=== PATIENT | male | born 1970 | race Caucasian/White ===

== ENCOUNTER 2017-03-22 11:21 | Emergency (ER) | payer SELFPAY ==
[~2017-03-22] VITALS: Ht 180.3 cm; Wt 79.4 kg
[2017-03-22 11:30] VITALS: BP 118/81
[2017-03-22] MEDS ORDERED: LIDOCAINE 1% / SOD BICARB 8.4% 20 ML VIAL. IJ ONE (12:15)
[2017-03-22] MEDS ORDERED: LIDOCAINE/EPI/TETRACAINE TOPICAL GEL 3 ML. TP ONE (12:15)
[2017-03-22] MEDS ORDERED: DIPHTH,PERTUSS(ACELL),TET TOX 0.5 ML DISP.SYRIN. VAX IM ONE (12:15)
--- NOTE | 2017-03-22 13:00 | PHYS DOC ---
Past Medical History Past Medical History: No Pertinent History Past Surgical History: Other Additional Past Surgical Histo: LEFT ARM SX, RIGHT LEG SX Alcohol Use: Occasionally Drug Use: None Adult General Chief Complaint Chief Complaint: LACERATION/AVULSION HPI HPI Patient is a 46 year old male who presents with right elbow laceration. Patient states he got cut by a piece of metal cleaning gutters. Review of Systems Review of Systems Constitutional: Denies fever or chills [] Musculoskeletal: Denies back pain or joint pain [] Integument: Right elbow laceration Neurologic: Denies headache, focal weakness or sensory changes [] Endocrine: Denies polyuria or polydipsia [] Current Medications Current Medications Current Medications Medications (Trade) Dose Ordered Sig/Carlos Start Time Stop Time Status Last Admin Dose Admin Diphtheria/ Tetanus/Acell Pertussis (Boostrix) 0.5 ml ONCE ONCE 03/22/17 12:15 03/22/17 12:16 DC 03/22/17 12:02 0.5 ML Lidocaine/ Epinephrine (Let Topical) 3 ml 1X ONCE 03/22/17 12:15 03/22/17 12:16 DC 03/22/17 12:01 3 ML Lidocaine/Sodium Bicarbonate (Buffered Lidocaine 1%) 20 ml 1X ONCE 03/22/17 12:15 03/22/17 12:16 DC 03/22/17 12:01 20 ML Allergies Allergies Allergies Coded Allergies Type Severity Reaction Last Updated Verified No Known Drug Allergies 03/22/17 No Physical Exam Physical Exam Constitutional: Well developed, well nourished, no acute distress, non-toxic appearance. [] Skin: Right antecubital elbow with a laceration approximately 4 cm long, this no tendon involvement. Full range of motion to the right elbow including flexion and extension. +2 right radial pulse. Cap refill less than 2 seconds the right upper extremity. Adequate radial medial and ulnar sensation to the right upper extremity. Back: No tenderness, no CVA tenderness. [] Extremities: No tenderness, no cyanosis, no clubbing, ROM intact, no edema. [] Neurologic: Alert and oriented X 3, normal motor function, normal sensory function, no focal deficits noted. [] Psychologic: Affect normal, judgement normal, mood normal. [] Current Patient Data Vital Signs Vital Signs Date Time Temp Pulse Resp B/P (MAP) Pulse Ox O2 Delivery O2 Flow Rate FiO2 03/22/17 11:30 97.7 86 16 96 Room Air 97.7 EKG EKG [] Radiology/Procedures Radiology/Procedures Indication: Right elbow laceration Procedure: The patient was placed in the appropriate position and anesthesia around the laceration was LET then 1% buffered lidocaine. The laceration was explored for foreign objects, none was found. The area was then cleaned with the 100 ML of normal saline and Betadine. The laceration was closed with 7 interrupted sutures using 4. 0 Ethilon. The wound was covered with nonstick dressing. Total repaired wound length: approx. 4 cm Other Items: none The patient tolerated the procedure well Complications: none Course & Med Decision Making Course & Med Decision Making Pertinent Labs and Imaging studies reviewed. (See chart for details) Patient has right elbow laceration that was closed as noted in procedures by me. Tetanus was updated. Wound care instructions and return precautions provided. Dragon Disclaimer Dragon Disclaimer This electronic medical record was generated, in whole or in part, using a voice recognition dictation system. Departure Departure Impression: Primary Impression: Laceration of right elbow Disposition: 01 HOME, SELF-CARE Condition: STABLE Referrals: NO PCP (PCP) Follow up with the emergency room or your own doctor in 7-10 days for suture removal Patient Instructions: Laceration Care, Adult Additional Instructions: You were seen for right elbow laceration which was closed with stitches. Keep the area clean and dry. You can shower, do not soak the area. Apply Neosporin to the area twice a day. Monitor it for signs and symptoms of infection including but not limited to increased redness warmth or odor/yellow drainage from the area and return to the ED if they occur. Follow-up with your doctor or the emergency room in 7-10 days for suture removal. Problem Qualifiers Primary Impression: Laceration of right elbow Encounter type: initial encounter Qualified Codes: S51.011A - Laceration without foreign body of right elbow, initial encounter DUANE ELKINS APRN Mar 22, 2017 13:00
== END 2017-03-22 13:11 | disposition home or self-care (01) ==
LOC: ER 11:21
DX: S51.011A Laceration without foreign body of right elbow, initial encounter (principal); Z23 Encounter for immunization; W45.8XXA Other foreign body or object entering through skin, initial encounter; Y93.E8 Activity, other personal hygiene; Y99.8 Other external cause status; Y92.89 Other specified places as the place of occurrence of the external cause
CPT/HCPCS: 12002; 90471; 90715; 99283-25